=== PATIENT | female | born 1975 | race Caucasian/White ===

== ENCOUNTER 2018-08-06 00:02 | Emergency (ER) | payer MEDICARE, MEDICAID ==
[~2018-08-06] VITALS: Ht 165.1 cm; Wt 48.0 kg
[2018-08-06 01:05] LABS: BASOPHILS % 1.4 % (0.0-2.0); EOSINOPHILS % 2.6 % (0.0-5.0); HEMATOCRIT. 37.7 % (36.0-48.0); HEMOGLOBIN. 12.5 g/dL (12.0-16.0); MEAN CORPUSCULAR HEMOGLOBIN 29.7 pg (28.0-32.0); MEAN CORPUSCULAR VOLUME 89.6 fL (81.0-99.0); MEAN PLATELET VOLUME 8.1 fl (7.4-10.4); MONOCYTES % 5.9 % (2.0-8.0); NEUTROPHILS % 59.1 % (40.0-76.0); PLATELET 349 x1000/uL (130-400); RED BLOOD CELL COUNT 4.21 mill/uL (4.2-5.4)
[2018-08-06 01:12] LABS: CHLORIDE 103 mEq/L (98-107)
[2018-08-06] MEDS ORDERED: HYDROCODONE/ACETAMINOPHEN 5/325MG TABLET PO SCH (01:47)
[2018-08-06 01:50] LABS: HCG SCREEN NEGATIVE
[2018-08-06 05:30] VITALS: BP 117/73
== END 2018-08-06 05:35 | disposition home or self-care (01) ==
LOC: ER 00:02
DX: E11.649 Type 2 diabetes mellitus with hypoglycemia without coma (principal)
CPT/HCPCS: 36415; 71045; 80048; 82962; 84703; 99284

== ENCOUNTER 2018-09-07 15:37 | Inpatient (IN) | payer MEDICARE, MEDICAID ==
[~2018-09-07] VITALS: Ht 152.4 cm; Wt 50.3 kg
[2018-09-07] MEDS ORDERED: SODIUM CHLORIDE 0.9% 1,000 ML IV ONE (16:28)
[2018-09-07 16:57] LABS: BG BASE EXCESS -5.6 mmol/L (-2.0-2.0); BG CARBOXYHEMOGLOBIN 0.3 % (0.5-1.5); BG DEOXYHEMOGLOBIN 1.6 % (0.0-5.0); BG FRACTION INSPIRED OXYGEN 21; BG HCO3 ACT 16.2 mmol/L (22.0-26.0); BG METHEMOGLOBIN 0.3 % (0.0-1.5); BG OXYGEN SATURATION 98.4 % (92.0-98.5); BG OXYHEMOGLOBIN 97.8 % (94.0-97.0); BG PCO2 22.3 mmHg (35.0-45.0); BG PH 7.479 (7.350-7.450); BG PO2 124.3 mmHg (75.0-100.0); BG SAMPLE SITE RIGHT BRACHIAL; BG TOTAL HEMOGLOBIN 11.6 g/dL (12.0-18.0); BG VENT MODE ROOM AIR
[2018-09-07 17:37] LABS: BASOPHILS % 0.4 % (0.0-2.0); HEMOGLOBIN. 11.3 g/dL (12.0-16.0); LYMPHOCYTES % 13.8 % (20.0-50.0); MEAN CORPUSCULAR HEMOGLOBIN 29.5 pg (28.0-32.0); MEAN CORPUSCULAR VOLUME 88.4 fL (81.0-99.0); MEAN PLATELET VOLUME 8.4 fl (7.4-10.4); MONOCYTES % 6.5 % (2.0-8.0); NEUTROPHILS % 79.3 % (40.0-76.0); PLATELET 290 x1000/uL (130-400); RED BLOOD CELL COUNT 3.85 mill/uL (4.2-5.4); RED CELL DISTRIBUTION WIDTH 13.8 % (11.6-14.6)
[2018-09-07 17:39] LABS: CHLORIDE 91 mEq/L (98-107)
[2018-09-07 17:46] LABS: PHOSPHORUS 3.4 mg/dL (2.5-4.9)
[2018-09-07] MEDS ORDERED: KETOROLAC 15MG/ML VIAL IV NR (18:00)
[2018-09-07] MEDS ORDERED: SODIUM CHLORIDE 0.9% 1,000 ML IV NR (18:00)
[2018-09-07] MEDS ORDERED: ONDANSETRON HCL 4MG/2ML INJ IV NR (18:00)
[2018-09-07] MEDS ORDERED: LORAZEPAM 2MG/ML CPJ IV NR (18:00)
[2018-09-07] MEDS ORDERED: MORPHINE SULFATE 4 MG/ML CPJ (NOT FOR IM USE) IV NR (18:00)
[2018-09-07] MEDS ORDERED: INSULIN REGULAR (HUMULIN R) 300UNITS/3ML SUBCUT ONE (19:30)
[2018-09-07 23:34] LABS: CLARITY URINE CLEAR (CLEAR); COLOR URINE YELLOW (YELLOW); KETONES URINE 4+ (NEGATIVE); LEUKOCYTE ESTERASE URINE NEGATIVE (NEGATIVE); NITRITE URINE NEGATIVE (NEGATIVE); OCCULT BLOOD URINE NEGATIVE (NEGATIVE); PROTEIN URINE NEGATIVE (NEGATIVE); SPECIFIC GRAVITY URINE 1.018 (1.005-1.030); UROBILINOGEN URINE 0.2 E.U./dL (0.2-1.0)
[2018-09-07 23:55] LABS: *AMPHETAMINES SCREEN URINE NEGATIVE (NEGATIVE)
[2018-09-07 23:56] LABS: *BARBITURATES SCREEN URINE NEGATIVE (NEGATIVE); *BENZODIAZEPINES SCREEN URINE NEGATIVE (NEGATIVE); *COCAINE SCREEN URINE NEGATIVE (NEGATIVE); METHADONE URINE SCREEN NEGATIVE (NEGATIVE); OPIATES URINE SCREEN NEGATIVE (NEGATIVE); PHENCYCLIDINE URINE SCREEN NEGATIVE (NEGATIVE)
[2018-09-07 23:57] LABS: CANNABINOID URINE SCREEN NEGATIVE (NEGATIVE)
[2018-09-08] VITALS (24 sets, daily range): BP systolic 81–122; BP diastolic 39–72
[2018-09-08] MEDS ORDERED: ONDANSETRON HCL 4MG/2ML INJ IV ONE (00:30)
[2018-09-08] MEDS ORDERED: FAMOTIDINE 20MG/2ML VIAL IV ONE (00:45)
[2018-09-08] MEDS ORDERED: SODIUM CHLORIDE 0.9% 1,000 ML IV SCH ×2 (00:55→10:14)
[2018-09-08] MEDS ORDERED: LORAZEPAM 2MG/ML CPJ IV PRN (01:00)
[2018-09-08] MEDS ORDERED: DIPHENHYDRAMINE 50MG/ML VIAL IV PRN (01:00)
[2018-09-08] MEDS ORDERED: HYDROMORPHONE HCL/PF 2MG/ML CPJ IV PRN (01:00)
[2018-09-08] MEDS ORDERED: KETOROLAC 30MG/ML VIAL IV PRN (01:00)
[2018-09-08] MEDS ORDERED: DEXTROSE 50% WATER 50ML SYRINGE IV PRN (01:00)
[2018-09-08] MEDS ORDERED: ONDANSETRON HCL 4MG/2ML INJ IV PRN (01:00)
[2018-09-08] MEDS ORDERED: HYDRALAZINE 20MG/ML VIAL IV PRN (01:00)
[2018-09-08] MEDS: METOCLOPRAMIDE HCL 10MG/2ML VIAL IV PRN (04:08)
[2018-09-08] MEDS ORDERED: PANTOPRAZOLE SODIUM 40 MG/VIAL IV SCH (04:30)
[2018-09-08 05:35] LABS: CHLORIDE 100 mEq/L (98-107)
[2018-09-08] MEDS ORDERED: BLOOD SUGAR DIAGNOSTIC STRIP TEST SCH ×3 (09:00→12:00)
[2018-09-08] MEDS ORDERED: INSULIN REGULAR (HUMULIN R) 300UNITS/3ML SUBCUT NR (09:30)
[2018-09-08] MEDS ORDERED: INSULIN REGULAR (HUMULIN R) UD 100 UNITS/ML SYR IV SCH (10:30)
[2018-09-08] MEDS: PANTOPRAZOLE SODIUM 40 MG/VIAL IV SCH ×2 (10:34→21:00)
[2018-09-08] MEDS ORDERED: INSULIN REGULAR (DRIP) 100 UNITS in SODIUM CHLORIDE 0.9% 99 ML IV SCH ×2 (11:00→19:04)
[2018-09-08] MEDS ORDERED: INSULIN LISPRO 100 UNITS/ML SUBCUT SCH (12:00)
[2018-09-08] MEDS: BLOOD SUGAR DIAGNOSTIC STRIP TEST SCH ×10 (13:30→23:02)
[2018-09-08] MEDS: DEXT 5%/0.45% NACL 1000ML 1,000 ML IV SCH (15:35)
[2018-09-08] MEDS ORDERED: INSULIN REGULAR (DRIP) 100 UNITS in SODIUM CHLORIDE 0.9% 100 ML IV SCH (19:00)
[2018-09-09] VITALS (33 sets, daily range): BP systolic 77–121; BP diastolic 25–77
[2018-09-09] MEDS: BLOOD SUGAR DIAGNOSTIC STRIP TEST SCH ×18 (00:14→21:09)
[2018-09-09] MEDS: DEXT 5%/0.45% NACL 1000ML 1,000 ML IV SCH (03:05)
[2018-09-09 05:50] LABS: BASOPHILS % 0.2 % (0.0-2.0); EOSINOPHILS % 0.1 % (0.0-5.0); HEMATOCRIT. 28.7 % (36.0-48.0); HEMOGLOBIN. 9.4 g/dL (12.0-16.0); LYMPHOCYTES % 17.1 % (20.0-50.0); MEAN CORPUSCULAR VOLUME 88.4 fL (81.0-99.0); MEAN PLATELET VOLUME 8.2 fl (7.4-10.4); MONOCYTES % 5.4 % (2.0-8.0); NEUTROPHILS % 77.2 % (40.0-76.0); PLATELET 257 x1000/uL (130-400); RED BLOOD CELL COUNT 3.24 mill/uL (4.2-5.4); RED CELL DISTRIBUTION WIDTH 13.9 % (11.6-14.6)
[2018-09-09 06:20] LABS: CHLORIDE 107 mEq/L (98-107)
[2018-09-09 06:30] LABS: PHOSPHORUS 2.4 mg/dL (2.5-4.9)
[2018-09-09] MEDS: PANTOPRAZOLE SODIUM 40 MG/VIAL IV SCH ×2 (08:34→21:00)
[2018-09-09] MEDS ORDERED: DEXTROSE 50% WATER 50ML SYRINGE IV PRN (10:30)
[2018-09-09] MEDS ORDERED: SODIUM CHLORIDE 0.9% 1,000 ML IV ONE (11:00)
[2018-09-09] MEDS ORDERED: POTASSIUM PHOS,M-BASIC-D-BASIC 15 MMOL in DEXT 5% WATER 245 ML IV SCH (11:30)
[2018-09-09] MEDS ORDERED: MAGNESIUM 2 G PREMIX 50 ML IV SCH (11:30)
[2018-09-09] MEDS: METOCLOPRAMIDE HCL 10MG/2ML VIAL IV PRN (11:36)
[2018-09-09] MEDS: INSULIN GLARGINE UD 100 UNITS/ML SYR SUBCUT SCH (12:01)
[2018-09-09] MEDS: INSULIN LISPRO 100 UNITS/ML SUBCUT SCH ×3 (13:24→21:13)
[2018-09-10] VITALS (15 sets, daily range): BP systolic 88–158; BP diastolic 53–88
[2018-09-10] MEDS: BLOOD SUGAR DIAGNOSTIC STRIP TEST SCH ×4 (07:50→20:40)
[2018-09-10] MEDS: PANTOPRAZOLE SODIUM 40 MG/VIAL IV SCH (08:13)
[2018-09-10] MEDS: INSULIN LISPRO 100 UNITS/ML SUBCUT SCH ×4 (08:40→20:58)
[2018-09-10] MEDS: INSULIN GLARGINE UD 100 UNITS/ML SYR SUBCUT SCH (09:06)
[2018-09-10 12:05] LABS: PHOSPHORUS 1.4 mg/dL (2.5-4.9)
[2018-09-10] MEDS ORDERED: POTASSIUM CHLORIDE 20MEQ TABLET SR PO SCH ×2 (13:30→18:00)
[2018-09-10] MEDS ORDERED: MAGNESIUM 2 G PREMIX 50 ML IV SCH (15:00)
[2018-09-10] MEDS ORDERED: POTASSIUM PHOS,M-BASIC-D-BASIC 30 MMOL in DEXT 5% WATER 500 ML IV SCH (15:00)
[2018-09-10] MEDS ORDERED: POTASSIUM CHLORIDE 20MEQ/PACKET PO NR ×2 (15:45→18:00)
[2018-09-10] MEDS: FAMOTIDINE 20MG/2ML VIAL IV SCH (20:35)
[2018-09-11] VITALS: BP 102/61
[2018-09-11 04:00] VITALS: BP 107/65
[2018-09-11] MEDS: BLOOD SUGAR DIAGNOSTIC STRIP TEST SCH ×2 (06:47→12:07)
[2018-09-11 08:00] VITALS: BP 110/64
[2018-09-11] MEDS: INSULIN LISPRO 100 UNITS/ML SUBCUT SCH ×2 (08:40→12:43)
[2018-09-11] MEDS: FAMOTIDINE 20MG/2ML VIAL IV SCH (09:00)
[2018-09-11] MEDS ORDERED: INSULIN GLARGINE UD 100 UNITS/ML SYR SUBCUT SCH (10:00)
[2018-09-11 10:11] LABS: PHOSPHORUS 3.3 mg/dL (2.5-4.9)
[2018-09-11] MEDS ORDERED: MAGNESIUM 4 G PREMIX 100 ML IV NR (12:00)
[2018-09-11 12:22] VITALS: BP 97/57
[2018-09-11 14:05] VITALS: BP 97/57
== END 2018-09-11 14:40 | disposition home or self-care (01) | DRG 638 ==
LOC: ER 15:37 → 5WST 09-08 00:48 → ENRESERV 09-08 07:09 → CVICU 09-08 11:41 → 6EST 09-10 09:33
PROVIDERS: ADMIT Internal Medicine; ATTEND Internal Medicine
DX: E11.10 Type 2 diabetes mellitus with ketoacidosis without coma (principal); N17.9 Acute kidney failure, unspecified; R64 Cachexia; E87.6 Hypokalemia; E83.42 Hypomagnesemia; E83.39 Other disorders of phosphorus metabolism; F10.21 Alcohol dependence, in remission; Z79.4 Long term (current) use of insulin; Z83.3 Family history of diabetes mellitus; Z68.21 Body mass index [BMI] 21.0-21.9, adult; Z88.1 Allergy status to other antibiotic agents
CPT/HCPCS: 36415; 36600; 71045; 80048; 80051; 80305; 82375; 82805; 82962; 83735; 84100; 93005; 96361; 96372; 96374; 96375; 99285; C9113; J1815; J1885; J2060; J2270; J2405; J2765; J3475; J3490; J7030; J7050; J7060

== ENCOUNTER 2018-09-14 09:54 | Emergency (ER) | payer MEDICARE, MEDICAID ==
[~2018-09-14] VITALS: Ht 162.6 cm; Wt 50.0 kg
[2018-09-14] MEDS ORDERED: SODIUM CHLORIDE 0.9% 1,000 ML IV ONE ×3 (10:38→15:00)
[2018-09-14 11:21] LABS: BASOPHILS % 0.4 % (0.0-2.0); EOSINOPHILS % 0.1 % (0.0-5.0); HEMOGLOBIN. 10.6 g/dL (12.0-16.0); LYMPHOCYTES % 18.5 % (20.0-50.0); MEAN CORPUSCULAR HEMOGLOBIN 29.5 pg (28.0-32.0); MEAN CORPUSCULAR VOLUME 88.9 fL (81.0-99.0); MEAN PLATELET VOLUME 8.3 fl (7.4-10.4); MONOCYTES % 10.4 % (2.0-8.0); NEUTROPHILS % 70.6 % (40.0-76.0); PLATELET 244 x1000/uL (130-400); RED BLOOD CELL COUNT 3.59 mill/uL (4.2-5.4)
[2018-09-14 11:29] LABS: CHLORIDE 94 mEq/L (98-107)
[2018-09-14 11:37] LABS: BETA HYDROXYBUTYRATE 2.7 mMol/L (0.0-0.3)
[2018-09-14 15:07] VITALS: BP 94/45
== END 2018-09-14 15:08 | disposition left against medical advice (07) ==
LOC: ER 10:02 → CANBEDREQ 15:16
DX: E11.65 Type 2 diabetes mellitus with hyperglycemia (principal); E86.0 Dehydration; I95.9 Hypotension, unspecified; Z79.4 Long term (current) use of insulin; Z88.0 Allergy status to penicillin
CPT/HCPCS: 36415; 80053; 82010; 82962; 84484; 85025; 96360; 96361; 99283; J7030